=== PATIENT | male | born 1970 | race Caucasian/White ===

== ENCOUNTER 2022-07-09 05:57 | Day surgery (SDC) | payer BC, OTHER ==
[2022-07-09] MEDS ORDERED: LIDOCAINE 1% (10MG/ML) FOR IV START INTRADERMA PRN (06:11)
[2022-07-09] MEDS ORDERED: LACTATED RINGERS 1,000 ML IV SCH (06:11)
[2022-07-09 06:31] VITALS: RESP 20; TEMP 97.9
[2022-07-09] MEDS ORDERED: PROPOFOL 10 MG/ML 20 ML VIAL IV ONE (07:03)
[2022-07-09] MEDS ORDERED: LIDOCAINE 2% INJ 20 MG/ML (2 ML VIAL) ONE (07:03)
[2022-07-09] MEDS ORDERED: fentaNYL (PF) 50 MCG/ML 2 ML AMP ONE (07:03)
[2022-07-09] MEDS ORDERED: MIDAZOLAM 2 MG/2 ML VIAL ONE (07:03)
--- NOTE | 2022-07-09 07:23 | P.PCN ---
Date of Procedure: 07/09/22 Procedure(s) Performed: Brief history: Patient is a pleasant 51-year-old white male scheduled for an elective upper endoscopy as well as colonoscopy as a part of evaluation of GERD and screening for colon cancer. He has family history of colon cancer diagnosed in sister age 53. Procedure performed: Esophagogastroduodenoscopy with biopsy Colonoscopy with snare polypectomy Preoperative diagnosis: GERD Screening for colon cancer and family history of colon cancer Anesthesia: MAC Procedure: After informed consent was obtained from the patient was brought into the endoscopy unit and IV sedation was administered by anesthesia under continuous monitoring. Initially upper endoscopy was done. The Olympus GF 160 video endoscope was inserted inserted into the mouth and esophagus intubated without any difficulty and was gradually advanced into the stomach and duodenum and carefully examined. The bulb and second part of the duodenum appeared normal. The scope was then withdrawn into the stomach adequately insufflated with air and upon careful examination the antrum had mild antral gastritis and biopsies were done from this area. Mucosa of the body, cardia and fundus appeared normal. The scope was then withdrawn into the esophagus. The GE junction was located at 40 cm to the incisors. It appeared regular linear erosions in the distal esophagus consistent with LA grade B reflux esophagitis. Rest of the esophagus appeared normal. Patient tolerated the procedure well. At this time the patient continued to remain sedation. Initial digital rectal examination was normal. Olympus CF 160 video colonoscope was then inserted into the rectum and gradually advanced to the cecum without any difficulty. Careful examination was performed as the scope was gradually being withdrawn. The prep was excellent. The cecum, ascending colon, appeared normal. In the transverse colon there was a 7 mm sessile polyp that was removed by snare polypectomy. Rest of the transverse colon, descending colon, sigmoid colon and rectum appeared normal. Scattered sigmoid diverticulosis. Retroflexion was performed in the rectum and no lesions were noted. Patient tolerated the procedure well. Impression: 1. Upper endoscopy revealed linear erosions in the distal esophagus consistent with LA grade B reflux esophagitis and mild antral gastritis 2. Colonoscopy revealed 7 mm transverse colon polyp status post-polypectomy and scattered sigmoid diverticulosis Recommendations: Findings of this examination were discussed with the patient as well as his family. He was advised to follow with the biopsy results. He'll be started on omeprazole 20 mg daily and was briefly educated about antireflux measures. He was advised to have a repeat colonoscopy in 5 years because of the family history of colon cancer .
[2022-07-09] MEDS ORDERED: IV FLUID CONTINUATION 1,000 ML IV ONE (07:27)
[2022-07-09 08:02] VITALS: BP 109/77; PULSE 59
== END 2022-07-09 08:23 | disposition home or self-care (01) ==
LOC: ORWHC2ENDO 05:57
PROVIDERS: ATTEND Internal Medicine Gastroenterology
DX: Z12.11 Encounter for screening for malignant neoplasm of colon (principal); K29.50 Unspecified chronic gastritis without bleeding; D12.3 Benign neoplasm of transverse colon; K21.00 Gastro-esophageal reflux disease with esophagitis, without bleeding; K57.30 Diverticulosis of large intestine without perforation or abscess without bleeding; I10 Essential (primary) hypertension; Z88.5 Allergy status to narcotic agent
CPT/HCPCS: 88305; 45385; 43239; J2250; J3010; J2704; J2001; 45378

== ENCOUNTER → 2023-01-14 | Outpatient (CLI) | payer OTHER ==
--- NOTE | 2023-01-18 07:47 | MR ---
EXAMINATION TYPE: MR knee LT wo con DATE OF EXAM: 01/14/2023 COMPARISON: NONE HISTORY: Left knee pain, locking, and swelling for 2 months TECHNIQUE: Multiplanar, multisequence images of the knee is performed without IV contrast. FINDINGS: MEDIAL MENISCUS: Horizontal increased signal involves central body and posterior horn does not defini tively extend to articular surface. LATERAL MENISCUS: Anterior and posterior horns are intact without tear. CRUCIATE LIGAMENTS: The anterior and posterior cruciate ligaments are intact and unremarkable. COLLATERAL LIGAMENTS: The medial collateral ligament and lateral collateral ligament complex are inta ct and unremarkable. EXTENSOR MECHANISM: Visualized quadriceps and patellar tendons are intact. EFFUSION: Small to moderate size suprapatellar joint effusion. POPLITEAL CYST: Moderate-sized leaking popliteal/dubon cyst. TRICOMPARTMENT SPACES: Mild to moderate tricompartment joint space loss without significant spurring. CARTILAGE: Focal cartilaginous fissuring medial tibiofemoral compartment sagittal image 23 BONE MARROW SIGNAL: Focal increased T2 signal medial aspect distal medial femoral condyle sagittal im age 21 measuring 7 mm AP diameter. OTHER: No additional significant abnormality is appreciated. IMPRESSION: 1. At least intrasubstance tear of the medial meniscus involving central body and posterior horn. 2. Small to moderate-sized suprapatellar joint effusion. 3. Mild to moderate tricompartment degenerative changes as detailed above. 4. Moderate-size leaking popliteal cyst. 5. Small osteochondral injury medial aspect distal medial femoral condyle.
== END | disposition home or self-care (01) ==
LOC: RADMRIMAIN 20:15
PROVIDERS: ATTEND Orthopaedic Surgery Sports Medicine
DX: M23.332 Other meniscus derangements, other medial meniscus, left knee (principal); M66.0 Rupture of popliteal cyst; M25.462 Effusion, left knee; M17.12 Unilateral primary osteoarthritis, left knee; S72.435A Nondisplaced fracture of medial condyle of left femur, initial encounter for closed fracture; X58.XXXA Exposure to other specified factors, initial encounter

== ENCOUNTER → 2023-10-21 | Outpatient (CLI) | payer OTHER ==
--- NOTE | 2023-10-21 17:13 | US ---
EXAMINATION TYPE: US thyroid st tissue head/neck DATE OF EXAM: 10/21/2023 COMPARISON: NONE CLINICAL INDICATION: Male, 53 years old with history of R599 ENLARGED LYMPH NODE; Ear infection 3 wee ks ago, noticed palp on right neck, since antibiotics it has felt better TECHNIQUE: Soft tissue of right neck FINDINGS: Normal appearing node seen at area of palpable = 0.9 x 0.7 x 0.6cm IMPRESSION: Normal-appearing lymph nodes.
--- NOTE | 2023-10-22 11:29 | CTL ---
EXAMINATION TYPE: CT Low Dose Lung DATE OF EXAM: 10/21/2023 4:02 PM CLINICAL INDICATION:Male, 53 years old with history of Z12.2 SCREENING FOR MALIGNANT NEOPLASM,F17.210 NICOTINE DEPE; personal tobacco use , history of tobacco use. COMPARISON: None. TECHNIQUE: Multiple axial non-contrast scans were obtained from approximately the lung apices through the upper abdomen. Coronal and sagittal reformatted images were obtained. Low dose technique was uti lized. CT DLP: 90 mGycm, Automated exposure control for dose reduction was used. CT Contrast: Contrast used: None Oral contrast used: None FINDINGS: ======== Lack of intravenous contrast and low dose technique limits the evaluation of the vascular and soft ti ssue structures. LUNGS: No evidence of pulmonary fibrosis. No evidence of focal consolidation, pneumothorax or pleural effusion. Centrilobular emphysema changes. Nodules: RUL: Calcified granulomas. RML: None. RLL: None. ROSEY: None. LLL: None. AIRWAY: Patent and unremarkable. HEART: Size within normal limits. MEDIASTINUM: No gross evidence of adenopathy. Partially calcified right pulmonary hilum lymph nodes. VASCULATURE: No aortic aneurysm. MUSCULOSKELETAL: No acute osseous abnormalities SOFT TISSUES/LYMPH NODES: Unremarkable. LOWER NECK: No significant findings. UPPER ABDOMEN: Diffuse low-attenuation to the liver parenchyma. IMPRESSION: 1. No clinically significant pulmonary nodules. 2. Mild emphysema. 3. Sequela of granulomatous disease with partially calcified right pulmonary hilum lymph node in righ t upper lung calcified pulmonary nodule. CT LUNG RAD AND CT CHEST RECOMMENDATION: Lung-Rad 2 Benign Appearance or Behavior: Continue annual sc reening with LDCT in 12 months. S Modifier (other clinically significant findings): None Recommend smoking cessation (if current smoker), or continuation of smoking cessation (if prior smoke r). Annual screening for lung cancer with low-dose computed tomography is recommended in adults ages 55 to 77 years who have a 30 pack-year smoking history and currently smoke or have quit within the pa st 15 years. Screening should be discontinued once a person has not smoked for 15 years or develops a health problem that substantially limits life expectancy or the ability or willingness to have curat nikos lung surgery. Lung rads 2021 [email or web address]
== END | disposition home or self-care (01) ==
LOC: RADCTMAIN 15:29
PROVIDERS: ATTEND Family Medicine
DX: Z12.2 Encounter for screening for malignant neoplasm of respiratory organs (principal); R59.9 Enlarged lymph nodes, unspecified; J43.2 Centrilobular emphysema; J84.10 Pulmonary fibrosis, unspecified; R91.1 Solitary pulmonary nodule; F17.210 Nicotine dependence, cigarettes, uncomplicated
CPT/HCPCS: 71271; 76536

== ENCOUNTER → 2024-03-25 | Outpatient (CLI) | payer OTHER ==
--- NOTE | 2024-03-25 14:46 | MR ---
EXAMINATION TYPE: MR shoulder RT wo con DATE OF EXAM: 03/25/2024 1:34 PM COMPARISON: None. CLINICAL INDICATION: Male, 53 years old with history of M75.41 rotator cuff impingment, Right shoulde r pain x 1 year. TECHNIQUE: Multiplanar, multisequence imaging of the right shoulder is performed without contrast. FINDINGS: Heterogeneous intermediate signal within the intracapsular portion of the long head biceps tendon sug gesting tendinosis or some partial tearing. Mild tenosynovial fluid along the bicipital groove. There is a partial tear involving the subscapularis tendon, particularly the inferior half fibers, sa gittal image 21. Moderate degenerative change of the acromioclavicular joint with joint space narrowing, prominent yevgeniy ctive subchondral marrow signal change, mild capsular edema and hypertrophy. No significant effusion or thickening of the subacromial/subdeltoid bursa. Heterogeneous signal throughout the supraspinatus and infraspinatus tendon with scattered intrasubsta nce change. There is a tiny bursal sided tear of the far anterior supraspinatus tendon measuring 6 x 5 mm. In addition, there is a delaminating intrasubstance tear at the junction of the supraspinatus and inf raspinatus tendon located below the acromion measuring 1.7 cm long and 7 mm AP (coronal image 17 and sagittal image 21). No high-grade partial or full-thickness tear of either supraspinatus or infraspinatus tendons. No atrophy of the rotator cuff musculature. The glenohumeral joint appears intact. No significant joint effusion. However, there is a SLAP tear w hich extends from the biceps anchor back to the superior aspect of the posterior labrum, coronal imag es 14 through 18. No Hill-Sachs deformity or os acromiale. Some patchy red marrow hyperplasia which can be seen with anemia, obesity, smoking, chronic disease. IMPRESSION: 1. Diffuse rotator cuff tendinosis with scattered intrasubstance change. Discrete tears include: (1) tiny bursal sided tear far anterior supraspinatus insertion measuring 6 x 5 mm, (2) delaminating intr asubstance tear at the junction of the supraspinatus and infraspinatus tendons located below the acro mion (1.7 x 0.7 cm), and (3) partial tear of the subscapularis tendon involving the inferior half fib ers. 2. No high-grade partial or full-thickness tear is seen. No muscle atrophy. 3. Moderate AC joint OA. Some edema about the joint capsule and subchondral bone could reflect an acu te exacerbation of underlying OA. 4. SLAP tear. In addition, tendinosis versus intrasubstance tear involving the intracapsular portion of the long head biceps tendon. [facility], , 03/25/2024 2:43 PM
== END | disposition home or self-care (01) ==
LOC: RADMRIMAIN 12:54
PROVIDERS: ATTEND Orthopaedic Surgery Sports Medicine
DX: M75.41 Impingement syndrome of right shoulder (principal); M19.011 Primary osteoarthritis, right shoulder; M67.813 Other specified disorders of tendon, right shoulder; M75.111 Incomplete rotator cuff tear or rupture of right shoulder, not specified as traumatic; R60.9 Edema, unspecified

== ENCOUNTER 2024-04-22 08:23 | Day surgery (SDC) | payer OTHER ==
[~2024-04-22 08:23] MED LIST: HYDROmorphone 0.5 MG/0.5 ML SYRINGE IVP PRN; LIDOCAINE 1% (10MG/ML) FOR IV START INTRADERMA PRN; MIDAZOLAM 2 MG/2 ML VIAL IV PRN; Pre Op ABX Message 1 EACH MISC MISCELLANE ONE; fentaNYL (PF) 50 MCG/ML 2 ML AMP IVP PRN
[2024-04-22 09:06] LABS: HCT 43.8 % (39.0-53.0); HGB 14.7 gm/dL (13.0-17.5); MCHC 33.6 g/dL (31.0-37.0); MCV 89.4 fL (80.0-100.0); Mean Platelet Volume 7.6; Platelet Count 201 k/uL (150-450); RDW 12.9 % (11.5-15.5); WBC 5.9 k/uL (3.8-10.6)
[2024-04-22] MEDS: DEXAMETHASONE SOD PHOSPHATE 4 MG/ML 1 ML VIAL IV ONE (09:10)
[2024-04-22] MEDS: ONDANSETRON 4 MG/2 ML VIAL IVP ONE (09:10)
[2024-04-22] MEDS: LACTATED RINGERS 1,000 ML IV SCH (09:10)
[2024-04-22] MEDS: MIDAZOLAM 2 MG/2 ML VIAL IVP ONE (09:14)
[2024-04-22 09:22] LABS: African American GFR (CKD) >90 (>60 ml/min/1.73 sqM); Anion Gap 8 mmol/L; Blood Urea Nitrogen 14 mg/dL (9-20); Carbon Dioxide 28 mmol/L (22-30); Chloride 104 mmol/L (98-107); Glucose 117 mg/dL (74-99); Non-African American GFR(CKD) >90 (>60 ml/min/1.73 sqM); Potassium 4.2 mmol/L (3.5-5.1); Sodium 140 mmol/L (137-145)
--- NOTE | 2024-04-22 09:28 | P.ANPRN ---
Procedure Note - Anesthesia - Nerve Block Performed Right Interscalene Single Time Out Performed: Yes Date of Procedure: 04/22/24 Procedure Start Time: :14 Procedure Stop Time: :19 Location of Patient: PreOp Indication: Acute Post-Operative Pain, Analgesia, Requested by Surgeon Sedation Type: Sedate with meaningful contact maintained Preparation: Sterile Prep Position: Sitting Catheter: None Needle Types: Pajunk Needle Gauge: 21 Ultrasound used to visualize needle placement: Yes Ultrasound used to observe medication spread: Yes Injectate: 0.5% Ropivacaine (see comment for volume) ([id number]) Narrative: Negative stimulation @ 0.5MA Blood Aspirated: No Pain Paresthesia on Injection Noted: No Resistance on Injection: Normal Image Stored and Saved: Yes Events: Uneventful and Well Tolerated
[2024-04-22] MEDS ORDERED: TRANEXAMIC 1,000 MG/100ML-NACL 1,000 MG in SALINE 1 100ML.BAG IVPB PRN (09:30)
[2024-04-22] MEDS: LACTATED RINGERS 1,000 ML IV ONE (09:34)
[2024-04-22] MEDS ORDERED: DEXAMETHASONE SOD PHOSPHATE 4 MG/ML 1 ML VIAL ONE (10:23)
[2024-04-22] MEDS ORDERED: ROPIVACAINE 5 MG/ML 30 ML VIAL ONE (10:23)
[2024-04-22] MEDS ORDERED: MIDAZOLAM 2 MG/2 ML VIAL ONE (10:23)
[2024-04-22] MEDS ORDERED: PHENYLEPHRINE 10 MG/ML VIAL ONE (10:23)
[2024-04-22] MEDS ORDERED: LIDOCAINE 1% INJ 10MG/ML (20 ML MDV) ONE (10:23)
[2024-04-22] MEDS ORDERED: SUCCINYLCHOLINE CHLORIDE 200 MG/10 ML VIAL IV ONE (10:23)
[2024-04-22] MEDS ORDERED: PROPOFOL 10 MG/ML 20 ML VIAL IV ONE (10:23)
[2024-04-22] MEDS ORDERED: fentaNYL (PF) 50 MCG/ML 2 ML AMP ONE (10:23)
[2024-04-22] MEDS ORDERED: TRANEXAMIC 1,000 MG/100ML-NACL PREMIX BAG ONE (10:23)
[2024-04-22] MEDS: LIDOCAINE 2%-EPI 1:100,000 20 ML VIAL INTRAARTIC ONE (11:00)
[2024-04-22 11:50] VITALS: TEMP 97
[2024-04-22] MEDS: HYDROcodone/APAP 7.5-325MG 1 EACH TAB PO STA (13:09)
[2024-04-22 13:16] VITALS: RESP 18
[2024-04-22 13:49] VITALS: BP 121/72; PULSE 65
--- NOTE | 2024-04-22 18:29 | OP ---
OPERATIVE REPORT DATE OF SERVICE : 04/22/2024 ANESTHESIA: General endotracheal. PREOPERATIVE DIAGNOSES: 1. Right shoulder superior labral tear. 2. Right shoulder bicipital tenosynovitis. 3. Right shoulder subacromial impingement. 4. Right shoulder advanced symptomatic acromioclavicular joint osteoarthrosis. POSTOPERATIVE DIAGNOSES: 1. Right shoulder displaced type 2 superior labral tear, tearing both anterior and posterior of the biceps anchor. 2. Right shoulder type 2 to 3 anterolateral acromial spur. 3. Right shoulder advanced narrowing and degenerative change of the acromioclavicular joint. PROCEDURES PERFORMED: 1. Right shoulder arthroscopic biceps tenotomy. 2. Right shoulder arthroscopic anterior, superior, posterior labral debridement. 3. Right shoulder arthroscopic acromioplasty. 4. Right shoulder arthroscopic distal clavicle excision. ANESTHESIA: General endotracheal. ESTIMATED BLOOD LOSS: Minimal. TOURNIQUET: None. DRAINS: None. COMPLICATIONS: None apparent. DISPOSITION: Postanesthesia care unit. EXAMINATION UNDER ANESTHESIA OF RIGHT SHOULDER: Elevation 160 degrees, external rotation at the side was 45 degrees. External rotation at 90 degrees of abduction was 90 degrees. Internal rotation at 90 degrees of abduction was 60 degrees. Sulcus less than 1 cm. Anterior translation of glenoid face. Posterior translation of glenoid face. ARTHROSCOPIC FINDINGS OF RIGHT SHOULDER: 1. Superior labrum: Type 2 superior labral tear, tearing both anterior and posterior of the biceps anchor. The biceps anchor was not intact. There was also significant displaced tearing of the superior labrum. There was also fraying of the intra-articular portion of long head of the biceps tendon. 2. Anterior and inferior labrum: Normal glenoid labral attachment. 3. Posterior labrum: Tearing of the posterior labrum from the 10 o'clock position to the 12 o'clock position on the glenoid face. 4. Humeral head cartilage was normal. 5. Rotator cuff was normal. 6. Glenoid face cartilage was normal. 7. Subacromial space: Significant fraying of the undersurface of the coracoacromial ligament with a type 2-3 anterolateral acromial spur. 8. Acromioclavicular joint: Advanced narrowing of the acromioclavicular joint with significant osteophyte formation of the distal clavicle. INDICATIONS FOR PROCEDURE: Jean Carlos is a very pleasant 53-year-old male with longstanding right shoulder pain. He has noted weakness as well as significant pain in the shoulder. The has been through a fairly significant course of nonoperative treatment up to this point. Physical examination and MRI revealed degenerative superior labral tear as well as symptomatic advanced acromioclavicular joint osteoarthrosis. At this point, he feels that he has failed nonoperative treatment and would like to proceed with operative intervention. A long discussion was held with the patient in regard to treatment options. The risks of procedure were all discussed with him in detail. These risks included but were not limited to risk of infection, nerve damage, bleeding, pain, and a small risk of deep vein thrombosis which could lead to fatal pulmonary embolism. Further risks included lack of healing of rotator cuff and the possibility for biceps contour change with biceps tenotomy. The patient understands the operation as well as the fact there is no guarantee of improvement of his symptoms. Appropriate informed consent was obtained. DESCRIPTION OF PROCEDURE: The patient was identified in the preoperative holding area. Surgical site was marked by both the patient and myself. He was given 2 g of Ancef IV for prophylactic purposes. He was then transported to the operative suite. He was placed supine on the operating room table. The patient was then intubated endotracheally and received general anesthesia throughout the operative procedure. Examination under anesthesia was then performed, and the findings were noted as above. The patient was then placed into the beach chair position well-padded in preparation for surgery. Great care was taken to ensure that the cervical spine was in neutral alignment well-padded and maintained that way throughout the operative procedure. Great care was also taken to ensure that his legs were appropriately padded as well. The patient's right upper extremity was then prepped and draped in usual sterile fashion. Standard surgical pause undertaken to ensure that we were operating the correct site and that appropriate preoperative antibiotics were given. All staff in room were in agreement, and we proceeded. The acromion as well as the AC joint, clavicle, and coracoid were marked with a surgical pen. The skin of the anticipated portal sites was also marked with a surgical pen. The skin of the anticipated portal sites was then injected with 0.25% Marcaine with epinephrine. I then proceeded to make a posterior portal. A 30-degree arthroscope was introduced through the glenohumeral joint through this portal. The arthroscopic pump pressure was set at 40 mmHg and maintained at a level throughout the entire case. Next, utilizing an 18-gauge spinal needle to help localize the placement, the anterior superior portal was made. This was made just underneath the biceps tendon high in the rotator interval. A small blue 5.75 mm cannula was then placed. The outflow was then done through this cannula. Diagnostic arthroscopy of shoulder was then performed. The findings were as noted above. Great care was taken to probe superior labral complex as well as the biceps anchor. The biceps anchor was not firmly attached. Significant tearing of the superior labrum. This extended both anterior and posterior to the biceps anchor. This was readily displaceable. The intra-articular portion of long head of the biceps tendon has significant tenosynovitis and has mild fraying as well. At this point, I proceeded with biceps tenotomy. The biceps was tenotomized near its attachment under the supraglenoid tubercle. This was done utilizing ArthroCare wand. I then proceeded to debride the torn loose tissue of the superior labrum. It was debrided anteriorly, superiorly and posteriorly back to stable tissue. I then inspected rotator cuff from intra-articular. He has some mild articular-sided fraying. This was gently debrided utilizing synovial shaver. The rotator cuff was otherwise completely intact and no evidence of tearing. At this point in time, no further work was deemed necessary from intra-articular. The arthroscope was removed from the glenohumeral joint, and utilizing the same posterior skin incision, it was placed in the subacromial space. Next, utilizing an 18-gauge spinal needle to help localize the placement, a lateral port was made under direct visualization. The subacromial bursectomy was then performed utilizing synovial shaver as well as the ArthroCare wand. There was significant fraying of the undersurface of the coracoacromial ligament. This was then taken down utilizing ArthroCare wand. This exposed underlying type 2 to 3 anterolateral acromial spur. I then proceeded with acromioplasty. Utilizing synovial shaver in a rik type fashion, acromioplasty was completed. When the acromioplasty was completed, the arthroscope was placed in the lateral portal and the shaver placed posteriorly to ensure that it was adequate and coplanar at the posterior aspect of the acromion. I then proceeded to inspect the rotator cuff from the bursal surface with the arthroscope in the lateral portal. The shoulder was taken through a full range of motion. The entire rotator cuff was visualized. There was no evidence of any bursal sided tearing of the rotator cuff. I then proceeded medially to the acromioclavicular joint. He had advanced symptomatic acromioclavicular osteoarthrosis. I then made a superior portal utilizing the 18-gauge spinal needle to help localize the placement. The shaver was then introduced through the superior portal. I then utilized a windshield wiper type technique to remove 5 mm of bone from the distal clavicle and 5 mm of bone from the medial acromion. The arthroscope was moved around to ensure that the resection was adequate. The anterior, superior, and posterior acromioclavicular joint ligaments were preserved. At this point in time, no further work was deemed necessary. The shoulder was thoroughly irrigated and drained with an outflow cannula. The arthroscopic equipment was removed from the shoulder. The arthroscopic portals were then closed with 3-0 nylon interrupted suture. Sterile compressive dressings were applied. The patient's right upper extremity was placed into a standard sling. All sponge and needle counts were deemed correct prior to closure. The patient tolerated the procedure without apparent complication. He was transferred to recovery room in stable condition. MMODL / IJN: [id number] /
== END 2024-04-22 13:50 | disposition home or self-care (01) ==
LOC: OR 08:23
PROVIDERS: ATTEND Orthopaedic Surgery Sports Medicine
DX: S43.431A Superior glenoid labrum lesion of right shoulder, initial encounter (principal); M75.21 Bicipital tendinitis, right shoulder; M75.41 Impingement syndrome of right shoulder; M19.011 Primary osteoarthritis, right shoulder; G89.18 Other acute postprocedural pain; I10 Essential (primary) hypertension; E78.5 Hyperlipidemia, unspecified; K21.9 Gastro-esophageal reflux disease without esophagitis; Z79.899 Other long term (current) drug therapy; Z87.891 Personal history of nicotine dependence; Z88.5 Allergy status to narcotic agent
CPT/HCPCS: 29823; 29824; 64415; 80048; 85027; J2250; J0330; J1100; J0690; J2405; J2003; J3010; J2795; J2704; J2371